=== PATIENT | male | born 1950 | race Caucasian/White ===

== ENCOUNTER 2018-04-05 20:38 | Inpatient (IN) | payer MEDICARE ==
[~2018-04-05] VITALS: Ht 170.2 cm; Wt 93.7 kg
[2018-04-05] MEDS ORDERED: OXYBUTYNIN CHLOR5 MG PO (20:43)
[2018-04-05] MEDS ORDERED: BACLOFEN10 MG PO (20:44)
[2018-04-05] MEDS ORDERED: ULTRAM50 MG PO (20:46)
[2018-04-06] VITALS (31 sets, daily range): BP systolic 90–196; BP diastolic 46–89; Ht 170.2 cm; Wt 93.7 kg
[2018-04-06 00:03] LABS: INR 1.37 (0.85-1.17); PROTIME 16.3 SECONDS (11.6-15.0)
[2018-04-06 00:04] LABS: APTT 37.6 SECONDS (22.8-39.4)
[2018-04-06 06:31] LABS: CALC OSMOLALITY 275 mosm/kg (275-300); CALCIUM 7.2 mg/dL (8.5-10.1); CHLORIDE - SERUM 97 mmol/L (98-107); CREATININE - SERUM 0.9 mg/dL (0.6-1.3); GLUCOSE 178 mg/dL (74-106); SODIUM 134 mmol/L (136-145); UREA NITROGEN 24 mg/dL (7-18); eGFR NON AFRICAN AMERICAN 89 mL/min (90-120)
[2018-04-06 06:43] LABS: POTASSIUM - SERUM 2.7 mmol/L (3.5-5.1)
[2018-04-06 06:46] LABS: BASOPHILS 0.7 % (0-2); EOSINOPHILS 0.1 % (0-7); HEMOGLOBIN 11.4 g/dL (13.5-17.5); IMMATURE GRANULOCYTES 7.3 % (0-5); MCH 30.4 pg (26.0-34.0); MCHC 35.6 g/dL (31.0-37.0); MCV 85.3 fL (80.0-100.0); MEAN PLATELET VOLUME 9.7 fL (7.4-10.4); MONOCYTES 3.6 % (2-11); NEUTROPHILS 85.3 % (40-80); PLATELET COUNT 145 10x3/uL (130-400); RBC 3.75 10x6/uL (4.20-6.10); RDW 14.4 % (11.5-14.5); WBC 15.1 10x3/uL (4.8-10.8)
--- NOTE | 2018-04-06 07:59 | OP ---
PATIENT NAME: GRISELDA LAN MEDICAL RECORD: [id number] :46 LOCATION:[facility] D.2303 ADMISSION DATE:04/05/18 SURGEON: AMA KO MD DATE OF OPERATION: 04/05/2018 SURGEON: Ama Ko MD CO-SURGEON: Castro Guzman MD ANESTHESIA: General. COMPLICATIONS: None. BLOOD LOSS: 1500 cc. WOUND CLASS: Grossly contaminated. PROCEDURE PERFORMED: Excisional debridement of Deb gangrene. Excisional debridement of stage IV right ischial decubitus ulcer, the wound was 50 cm in length, 35 cm in width, and 5 cm in depth. Left subclavian central venous line. Two additional procedures performed, please see Dr. Guzman's operative note for cystoscopy and Smith stent placement, excision of scrotum and creation of subcutaneous pocket for translocation of testicles. OPERATIVE COURSE: After consent was obtained, the patient was taken to the operating room and placed in the supine position on the operating table. General anesthesia was given. The left chest was prepped and draped in typical sterile fashion. The left subclavian vein was cannulated on the first pass. A guidewire was placed. The skin was incised with an 11-blade scalpel. The dilator was passed over the wire in a standard Seldinger fashion. The catheter was then passed over the wire in a standard Seldinger fashion. A Biopatch was placed. It was secured to the skin with a 2-0 nylon suture and sterile dressing. All 3 ports were aspirated and flushed. At this time, the patient was placed into the lithotomy position. The perineum was prepped and draped in typical sterile fashion. The patient had an eschar in the right ischial tuberosity that was 10 cm x 10 cm. The eschar was excised using 10 blade scalpel. The decubitus ulcer was stage IV and went to the ischial tuberosity with complete necrosis of the skin and subcutaneous tissue down to the periosteum of the ischial tuberosity. Again, the CT was examined. The areas of tissue dissection continued in correspondence with the preoperative imaging. Subcutaneous tissue, fascia was excised laterally from the decubitus ulcer to the lateral portion of the right posterior thigh. Subcutaneous tissue planes were again continued to be dissected medially, which came along and abutted to the rectum, penis, and continued down into the right and left hemiscrotum as well as extending up the inguinal canal. All skin was incised with a 10-blade scalpel. All necrotic tissue was excised using combination of electrocautery, sharp scissor dissection as well as scalpel dissection. At this time, Dr. Guzman performed his portion of the procedure. The patient had hypospadias with stricture of the urethra and a Smith was unable to be placed preoperatively. Dr. Guzman performed a cystoscopy with Smith catheter placement to the urethral stricture. Dr. Guzman debrided the right and left hemiscrotum. I assisted Dr. Guzman with the excision of the right and left hemiscrotum as is Dr. Guzman with creation of the subcutaneous tunnels for the placement of the testicles. At this time, I again copiously irrigated and suctioned the wound with peroxide and normal OPERATIVE REPORT [id number] GRISELDA LAN saline irrigation. Achieved hemostasis with electrocautery. The wound was then packed with Dakin's dampened Kerlix gauze. The total wound area was 50 cm x 35 cm x 5 cm. The patient was transferred to the ICU, intubated, in a critical condition. TRANSINT:[id number] Voice Confirmation ID: [id number] DOCUMENT ID: [id number] AMA KO MD at 0759 CC: [id number] DICTATION DATE: 04/06/18 0131 PLASMA SPECIALIST: 04/06/18 0653 ADM IN [place] [address] [place] [address]
--- NOTE | 2018-04-06 08:27 | OP ---
PATIENT NAME: GRISELDA LAN MEDICAL RECORD: [id number] :46 LOCATION:[facility] D.2303 ADMISSION DATE:04/05/18 SURGEON: OSMAN ROSALES MD DATE OF OPERATION: 04/06/2018 CO-SURGEONS: Alphonso Núñez MD (JJ), and Osman Rosales MD GENERAL ANESTHESIA: Al Sarai. 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 PROCEDURES: Cystoscopy, placement of a 16-Colombian Smith catheter over a guidewire. Wide excisional debridement of the perineum, the entire scrotum, and the proximal penile skin en bloc. Placement of both testicles in subcutaneous suprapubic pockets. Dr. Núñez performed the debridement of the region of the ischial spine and the perirectal fossa. FINDINGS: Gas gangrene with necrosis and abscess of the right ischial fossa, extending into the right buttock and tracking up the peritoneum along the entire scrotum. The testicles are viable and they were placed in suprapubic subcutaneous pocket. On cystoscopy, the patient has a coronal level hypospadias. A tight penile urethral stricture was noted. SPECIMENS: Perineum and scrotum, right inguinal skin, perineal and ischial skin, right facial periosteum. BLOOD LOSS: Estimated at 1500 mL. CLINICAL HISTORY: This is a 68-year-old male, who was transferred emergently from [facility]. He is functionally paraplegic as he is quite debilitated. He has issues with decubitus ulcers. About 2 weeks ago, he noted cellulitis in the right buttock area. This has gotten much more florid and now he is septic with acidosis. A CT scan performed in [place] shows gas in the right buttock around the ischial spine. They tracked in to the ischial fossa around the perirectal area and up the peritoneum into the scrotum. The gas is quite prevalent in the right hemiscrotum, but a dull flow is present in the left hemiscrotum. There is also some tracking of the gas in to the right medial thigh. He has been given multiple wide-spectrum antibiotics upon his arrival to the hospital. He is getting wide excisional debridement of all necrotic tissue. Dr. Núñez had already placed the patient in stirru, given him general anesthetic and started debridement of the tissues around the right ischial spine and the ischial fossa. He will dictate this part of the surgery separately. I was called to come to the OR as a Smith catheter could not be placed and also it was evident that the necrosis was extending into the scrotum. When I entered the first order of business was to get a catheter for fluid management. The patient has a coronal level hypospadias. I used urethral sounds to dilate the opening of the hypospadias to 24 Colombian. A 21-Colombian cystoscope with 30-degree lens was used for visualization. Normal saline was used for irrigation. The scope went into the mid penile urethra and then encountered a tight urethral stricture. I placed a Sensor wire through the lumen of the stricture and into the bladder. The scope was then removed, leaving the Sensor wire in place. Over the Sensor wire, we placed a 16-Colombian Godley Smith catheter. Once the catheter was fully in the bladder, the balloon OPERATIVE REPORT [id number] GRISELDA LAN was inflated with 15 mL of sterile water. The Sensor wire was then completely removed. The Smith catheter was put to bag drainage. I then extended the perineal incision cranially. We encountered necrotic tissue and pockets of pus. As I continued to dissect the right hemiscrotum, it was evident that the necrotic skin extended into the left hemiscrotum. We then extended the perineal incision all the way to the base of the left hemiscrotum. We continued to dissect away the scrotal skin and eventually we encountered the tunica vaginalis with the testicle attached. On the left side, we severed the gubernaculum and allowed the testicle within the tunica vaginalis to hang free. The testicle appears completely viable and pink. On the right side, a similar procedure was done, but the right side was encompassed and lot more necrotic tissue and abscess with pus. However, it was apparent that the necrotic tissue was merely necrosis of the tunica vaginalis. We stripped off the necrotic tunica vaginalis and the underlying testicle itself with the tunica albuginea was intact on the right side. Thus, the 2 testicles are viable. We continued the dissection en bloc. We went through Camper's and Giovani's fascia until we encountered the Miguel's fascia of the penis. The Smith catheter could be palpated in the urethra. We continued to dissect along the surface of the penis. The penis itself was completely viable. In this way, we finally had to meet the left lateral scrotal base incision to the right lateral scrotal base incision and this came across the base of the penis. Once the incision was fully made and the tissues dissected, the entire scrotum was removed en bloc. Some of the right medial thigh also had to be resected as the necrosis continued from the scrotum on to the right medial thigh. We then made suprapubic pocket instead of thigh pockets. The right medial thigh especially is going to be of questionable viability in the future. These are made bluntly using finger dissection. We then passed a 2-0 Prolene suture on a Tony needle entering from the skin of the intended testicular pocket on to a malleable retractor that had been placed into the pocket. The tip of the needle was then captured with a hemostat. The needle was placed through the inferior pole of the testicle and then the needle was passed back through the skin of the suprapubic region at the level of the intended pocket. We then gently pulled on both ends of the suture, which pulled the inferior pole of the testicle into the pocket. A 14-Colombian catheter had been cut into 1 cm segments to act as a rubber shod for the suture. This was placed on one of the suture strands and then the suture was tied to the skin loosely. We did not want to create any skin necrosis, we only wanted to anchor the testicle into its pocket. This was done on both sides. At this point, the necrotic periosteum over the ischium was also stripped away. The wound was liberally irrigated with normal saline and peroxide. Dakin solution was used for a Kerlix for packing. The patient will eventually be sent back to the intensive care unit. TRANSINT:[id number] Voice Confirmation ID: [id number] DOCUMENT ID: [id number] OSMAN ROSALES MD at 0827 CC: [id number] DICTATION DATE: 04/06/18 011 HUMAN RESOURCES EXECUTIVE: 04/06/18 0447 ADM IN [place] [address] [place] [address]
[2018-04-06 09:48] LABS: % SATURATION 36 % (15-55); IRON 36 ug/dl (35-150); TOTAL IRON BIND CAPACITY 98 ug/dl (260-445); UNSAT IRON BIND CAPACITY 62 ug/dl (150-375)
[2018-04-07] VITALS (34 sets, daily range): BP systolic 89–148; BP diastolic 43–88
[2018-04-07 05:10] LABS: BASOPHILS 0.1 % (0-2); EOSINOPHILS 0.3 % (0-7); IMMATURE GRANULOCYTES 5.3 % (0-5); LYMPHOCYTES 6.9 % (15-50); MCH 29.8 pg (26.0-34.0); MCHC 34.3 g/dL (31.0-37.0); MEAN PLATELET VOLUME 9.5 fL (7.4-10.4); MONOCYTES 3.3 % (2-11); NEUTROPHILS 84.1 % (40-80); RDW 15.5 % (11.5-14.5)
[2018-04-07 05:18] LABS: HEMATOCRIT 24.8 % (42.0-54.0); HEMOGLOBIN 8.5 g/dL (13.5-17.5); PLATELET COUNT 104 10x3/uL (130-400); RBC 2.85 10x6/uL (4.20-6.10); WBC 7.3 10x3/uL (4.8-10.8)
[2018-04-07 05:24] LABS: APTT 35.8 SECONDS (22.8-39.4); INR 1.27 (0.85-1.17); PROTIME 15.4 SECONDS (11.6-15.0)
[2018-04-07 05:38] LABS: ANION GAP 13.9 mmol/L (8-16); BILIRUBIN - DIRECT 1.19 mg/dL (0.00-0.30); BILIRUBIN - INDIRECT 0.24 mg/dL (0.00-1.00); BILIRUBIN - TOTAL 1.43 mg/dL (0.2-1.3); CARBON DIOXIDE 23.7 mmol/L (21.0-32.0); CREATININE - SERUM 1.1 mg/dL (0.6-1.3); MAGNESIUM - SERUM 1.5 mg/dL (1.8-2.4); PHOSPHOROUS 1.6 mg/dL (2.5-4.9); POTASSIUM - SERUM 3.6 mmol/L (3.5-5.1); PROTEIN - SERUM 4.2 g/dL (6.4-8.2)
[2018-04-07 05:39] LABS: CALCIUM 6.7 mg/dL (8.5-10.1)
[2018-04-08] VITALS (18 sets, daily range): BP systolic 93–157; BP diastolic 54–79
[2018-04-08 06:22] LABS: ALKALINE PHOSPHATASE 130 U/L (46-116); ALT (SGPT) 24 U/L (10-68); BILIRUBIN - DIRECT 1.11 mg/dL (0.00-0.30); BILIRUBIN - INDIRECT 0.37 mg/dL (0.00-1.00); BILIRUBIN - TOTAL 1.48 mg/dL (0.2-1.3); CARBON DIOXIDE 23.1 mmol/L (21.0-32.0); CHLORIDE - SERUM 106 mmol/L (98-107); CREATININE - SERUM 0.9 mg/dL (0.6-1.3); GLUCOSE 137 mg/dL (74-106); POTASSIUM - SERUM 3.8 mmol/L (3.5-5.1); PROTEIN - SERUM 4.9 g/dL (6.4-8.2); SODIUM 139 mmol/L (136-145); VANCOMYCIN - RANDOM 21.9 ug/mL (10.0-20.0); eGFR NON AFRICAN AMERICAN 89 mL/min (90-120)
[2018-04-08 06:26] LABS: HEMATOCRIT 31.2 % (42.0-54.0); HEMOGLOBIN 10.6 g/dL (13.5-17.5); MCH 29.5 pg (26.0-34.0); MCV 86.9 fL (80.0-100.0); MEAN PLATELET VOLUME 9.5 fL (7.4-10.4); PLATELET COUNT 116 10x3/uL (130-400); RBC 3.59 10x6/uL (4.20-6.10); RDW 17.5 % (11.5-14.5); WBC 10.4 10x3/uL (4.8-10.8)
[2018-04-08 06:33] LABS: ALBUMIN 1.5 g/dL (3.4-5.0); CALC OSMOLALITY 280 mosm/kg (275-300); MAGNESIUM - SERUM 1.9 mg/dL (1.8-2.4); UREA NITROGEN 15 mg/dL (7-18)
[2018-04-08 06:52] LABS: EOSINOPHILS 1 % (0-7); LYMPHOCYTES 6 % (15-50); MONOCYTES 1 % (2-11); NEUTROPHILS 84 % (40-80); PLATELET ESTIMATE DECREASED
[2018-04-09] VITALS (23 sets, daily range): BP systolic 107–164; BP diastolic 58–96
[2018-04-09 05:46] LABS: BASOPHILS 1.4 % (0-2); EOSINOPHILS 0.6 % (0-7); HEMATOCRIT 30.1 % (42.0-54.0); IMMATURE GRANULOCYTES 10.9 % (0-5); MCH 29.1 pg (26.0-34.0); MCHC 33.2 g/dL (31.0-37.0); MCV 87.5 fL (80.0-100.0); MEAN PLATELET VOLUME 9.3 fL (7.4-10.4); MONOCYTES 3.2 % (2-11); NEUTROPHILS 73.9 % (40-80); PLATELET COUNT 111 10x3/uL (130-400); RBC 3.44 10x6/uL (4.20-6.10); RDW 17.4 % (11.5-14.5); WBC 8.1 10x3/uL (4.8-10.8)
[2018-04-09 05:56] LABS: INR 1.3 (0.85-1.17); PROTIME 15.6 SECONDS (11.6-15.0)
[2018-04-09 05:57] LABS: APTT 38.1 SECONDS (22.8-39.4)
[2018-04-09 06:00] LABS: CARBON DIOXIDE 21.6 mmol/L (21.0-32.0); CHLORIDE - SERUM 104 mmol/L (98-107); CREATININE - SERUM 0.9 mg/dL (0.6-1.3); GLUCOSE 132 mg/dL (74-106); MAGNESIUM - SERUM 1.7 mg/dL (1.8-2.4); PHOSPHOROUS 1.9 mg/dL (2.5-4.9); POTASSIUM - SERUM 3.8 mmol/L (3.5-5.1); SODIUM 137 mmol/L (136-145); eGFR NON AFRICAN AMERICAN 89 mL/min (90-120)
[2018-04-09 06:01] LABS: CALC OSMOLALITY 274 mosm/kg (275-300); UREA NITROGEN 10 mg/dL (7-18)
[2018-04-09 06:02] LABS: ALBUMIN 1.9 g/dL (3.4-5.0); CALCIUM 6.9 mg/dL (8.5-10.1)
[2018-04-10] VITALS (17 sets, daily range): BP systolic 122–166; BP diastolic 50–99
--- NOTE | 2018-04-10 05:22 | OP ---
PATIENT NAME: GRISELDA LAN MEDICAL RECORD: [id number] :46 LOCATION:[facility] D.2303 ADMISSION DATE:04/05/18 SURGEON: AMA KO MD DATE OF OPERATION: 04/07/2018 SURGEON: Ama Ko MD PREOPERATIVE DIAGNOSIS: Deb gangrene. POSTOPERATIVE DIAGNOSIS: Deb gangrene. PROCEDURE PERFORMED: Excisional debridement of Deb's gangrene. The wound area is 50 cm x 35 cm x 5 cm. Sharp debridement was performed throughout the wound bed to debride all additional necrotic tissue. The wound was then copiously irrigated with hydrogen peroxide and saline. OPERATIVE COURSE: Hemostasis was obtained with electrocautery. The wound was then packed with Kerlix gauze soaked in quarter strength Dakin solution and covered in dry gauze dressings. At the end of the case, all needle and instrument counts were correct. No complications occurred. The patient was transferred to the ICU in stable condition. TRANSINT:[id number] Voice Confirmation ID: [id number] DOCUMENT ID: [id number] AMA KO MD at 0522 CC: [id number] DICTATION DATE: 04/07/18 1229 PLASTICS BENCH MECHANIC: 04/07/182109 ADM IN [place] [address] [place] [id number]
[2018-04-10 05:34] LABS: BASOPHILS 0.7 % (0-2); EOSINOPHILS 0.6 % (0-7); HEMATOCRIT 30.3 % (42.0-54.0); HEMOGLOBIN 10.1 g/dL (13.5-17.5); IMMATURE GRANULOCYTES 12.5 % (0-5); LYMPHOCYTES 9.2 % (15-50); MCH 29.4 pg (26.0-34.0); MCHC 33.3 g/dL (31.0-37.0); MCV 88.1 fL (80.0-100.0); MEAN PLATELET VOLUME 9.3 fL (7.4-10.4); MONOCYTES 2.3 % (2-11); NEUTROPHILS 74.7 % (40-80); PLATELET COUNT 109 10x3/uL (130-400); RBC 3.44 10x6/uL (4.20-6.10); RDW 17.2 % (11.5-14.5); WBC 8.4 10x3/uL (4.8-10.8)
[2018-04-10 05:47] LABS: CALC OSMOLALITY 273 mosm/kg (275-300); CALCIUM 7.2 mg/dL (8.5-10.1); CARBON DIOXIDE 21.3 mmol/L (21.0-32.0); CHLORIDE - SERUM 104 mmol/L (98-107); CREATININE - SERUM 0.8 mg/dL (0.6-1.3); GLUCOSE 139 mg/dL (74-106); POTASSIUM - SERUM 3.7 mmol/L (3.5-5.1); SODIUM 137 mmol/L (136-145); UREA NITROGEN 8 mg/dL (7-18); eGFR NON AFRICAN AMERICAN > 90 mL/min (90-120)
[2018-04-11] VITALS: BP 148/45
[2018-04-11 05:00] VITALS: BP 156/77
[2018-04-11 06:23] LABS: HEMATOCRIT 34.7 % (42.0-54.0); HEMOGLOBIN 11.5 g/dL (13.5-17.5); MCH 29.3 pg (26.0-34.0); MCHC 33.1 g/dL (31.0-37.0); MCV 88.5 fL (80.0-100.0); PLATELET COUNT 97 10x3/uL (130-400); RBC 3.92 10x6/uL (4.20-6.10); RDW 16.9 % (11.5-14.5); WBC 9.3 10x3/uL (4.8-10.8)
[2018-04-11 06:32] LABS: ALKALINE PHOSPHATASE 157 U/L (46-116); ALT (SGPT) 10 U/L (10-68); BILIRUBIN - TOTAL 1.46 mg/dL (0.2-1.3); CALC OSMOLALITY 266 mosm/kg (275-300); CALCIUM 7.6 mg/dL (8.5-10.1); CARBON DIOXIDE 22.9 mmol/L (21.0-32.0); CHLORIDE - SERUM 101 mmol/L (98-107); CREATININE - SERUM 0.8 mg/dL (0.6-1.3); GLUCOSE 108 mg/dL (74-106); PROTEIN - SERUM 5.9 g/dL (6.4-8.2); SODIUM 134 mmol/L (136-145); UREA NITROGEN 7 mg/dL (7-18); eGFR NON AFRICAN AMERICAN > 90 mL/min (90-120)
[2018-04-11 06:35] LABS: ALBUMIN 2.8 g/dL (3.4-5.0)
[2018-04-11 08:05] LABS: EOSINOPHILS 1 % (0-7); LYMPHOCYTES 10 % (15-50); MONOCYTES 4 % (2-11); NEUTROPHILS 74 % (40-80); PLATELET ESTIMATE DECREASED
[2018-04-11 08:27] VITALS: BP 152/74
--- NOTE | 2018-04-11 09:14 | MORECARE ---
CASE MANAGEMENT DISCHARGE SUMMARY PATIENT: GRISELDA LAN UNIT: [id number] ADM DATE: 04/05/18 AGE: 68 : 48 SEX: M ROOM/BED: D.2229 AUTHOR: TERRY DOWLING PHYSICIAN: REFERRING PHYSICIAN: NOHEMI REID MD DATE OF SERVICE: 04/11/18 Discharge Plan Patient Name: GRISELDA LAN [facility] [facility] 1950 Planned Disposition: Care Home Acute Care Facility Anticipated Discharge Date: Discharge Date: Expected LOS: Initial Reviewer: [email or web address] Initial Review Date: 04/11/2018 Generated: 04/11/18 10:14 am DCPIA - Discharge Planning Initial Assessment Updated by [email or web address]: Ambar Brown on 04/11/18 9:13 am * Is the patient Alert and Oriented? Yes * How many steps to enter\exit or inside your home? 0/0 * PCP Dr. Alphonso Dougherty * Pharmacy [facility] in [place] * Preadmission Environment Home Alone * ADLs Partial Dependent * Partial ADLs (Assistance needed) Ambulation * Equipment Wheelchair * List name and contact numbers for known caregivers / representatives who currently or will assist patient after discharge: Julia sidhu - [phone] * Verbal permission to speak to the caregivers and representatives has been obtained from the patient. Yes * Community resources currently utilized None * Additional services required to return to the preadmission environment? Yes * Can the patient safely return to the preadmission environment? No * Has this patient been hospitalized within the prior 30 days at any hospital? No External Providers External Provider: Rishi Acevedo [facility] Next Contact Date: Service Request Date: Service Type: Resolution: Reviewer: Comments: Patient Name: GRISELDA LAN Page [phone] at 0914 All edits/amendments must be made on the electronic document DICTATION DATE: 04/11/18912 SECURITY SUPERVISOR: LIZZY 04/11/18912 RPT#: [id number] DC DATE: STATUS: ADM IN [facility] [address] [place] [address] END OF REPORT
--- NOTE | 2018-04-11 09:27 | MORECARE ---
CASE MANAGEMENT DISCHARGE SUMMARY PATIENT: GRISELDA LAN UNIT: [id number] ADM DATE: 04/05/18 AGE: 68 : 48 SEX: M ROOM/BED: D.2229 AUTHOR: JOSEYDOC PHYSICIAN: REFERRING PHYSICIAN: NOHEMI REID MD DATE OF SERVICE: 04/11/18 Discharge Plan Patient Name: GRISELDA LAN Facility: [facility]:[place] : 1950 Planned Disposition: Plans Examiner Acute Care Facility Anticipated Discharge Date: Discharge Date: Expected LOS: Initial Reviewer: [email or web address] Initial Review Date: 04/11/2018 Generated: 04/11/18 10:27 am Comments DCP- Discharge Planning Updated by [email or web address]: Ambar Brown on 04/11/18 8:[address] Patient Name: GRISELDA LAN Admission Status: ER Accout number: [id number] Admission Date: 04-05-2018 : 1950 Admission Diagnosis:FARAZ GANGRENE Attending: NOHEMI REID Current LOS: 6 Anticipated DC Date: Planned Disposition: Plans Examiner Acute Care Facility Primary Insurance: MEDICARE A & B Discharge Planning Comments: CM met with patient to discuss discharge planning, he is alone in the room. States he lives in a one level home, no steps or ramp to the home. States he is in a wheelchair. States he self propels his wheelchair. States his son, Julia, is active in his care. He does not have any community resources assisting in the home. States he is independent and has a van he drives. States he self propels in his wheelchair. I discussed LTACH and SNF with him and he would like a referral to LTACH in [place]. I called Oxana with [facility] in [place] and clinical faxed. She states they are full now, but expect to have 4 discharges this week. CM will continue to follow and assist with discharge planning/needs. Anchorer: Ambar Brown DCPIA - Discharge Planning Initial Assessment Updated by [email or web address]: Ambar Brown on 04/11/18 9:13 am * Is the patient Alert and Oriented? Yes * How many steps to enter\exit or inside your home? 0/0 * PCP Dr. Alphonso Dougherty * Pharmacy [facility] in [place] * Preadmission Environment Home Alone * ADLs Partial Dependent * Partial ADLs (Assistance needed) Ambulation * Equipment Wheelchair * List name and contact numbers for known caregivers / representatives who currently or will assist patient after discharge: Julia sidhu - [phone] * Verbal permission to speak to the caregivers and representatives has been obtained from the patient. Yes * Community resources currently utilized None * Additional services required to return to the preadmission environment? Yes * Can the patient safely return to the preadmission environment? No * Has this patient been hospitalized within the prior 30 days at any hospital? No Last DP export: 04/11/18 8:14 a Patient Name: GRISELDA LAN Page [phone] at 0927 All edits/amendments must be made on the electronic document DICTATION DATE: 04/11/18926 CERTIFIED PHYSICIAN'S ASSISTANT: LIZZY 04/11/18926 RPT#: [id number] DC DATE: STATUS: ADM IN [facility] [address] [place] [address] END OF REPORT
[2018-04-11 12:04] VITALS: BP 160/75
[2018-04-11 15:07] VITALS: BP 136/76
[2018-04-11 20:00] VITALS: BP 153/63
[2018-04-12 04:00] VITALS: BP 151/59
[2018-04-12 08:00] VITALS: BP 130/80
[2018-04-12 10:28] LABS: HEMATOCRIT 32.7 % (42.0-54.0); HEMOGLOBIN 10.9 g/dL (13.5-17.5); MCH 29.3 pg (26.0-34.0); MCHC 33.3 g/dL (31.0-37.0); MCV 87.9 fL (80.0-100.0); MEAN PLATELET VOLUME 9.7 fL (7.4-10.4); PLATELET COUNT 83 10x3/uL (130-400); RBC 3.72 10x6/uL (4.20-6.10); RDW 16.6 % (11.5-14.5); WBC 7.8 10x3/uL (4.8-10.8)
[2018-04-12 10:43] LABS: ALBUMIN 2.4 g/dL (3.4-5.0); ALKALINE PHOSPHATASE 185 U/L (46-116); ALT (SGPT) 10 U/L (10-68); BILIRUBIN - TOTAL 1.31 mg/dL (0.2-1.3); CALC OSMOLALITY 263 mosm/kg (275-300); CALCIUM 7.4 mg/dL (8.5-10.1); CARBON DIOXIDE 24.4 mmol/L (21.0-32.0); CHLORIDE - SERUM 100 mmol/L (98-107); CREATININE - SERUM 0.7 mg/dL (0.6-1.3); GLUCOSE 120 mg/dL (74-106); POTASSIUM - SERUM 4.2 mmol/L (3.5-5.1); PROTEIN - SERUM 5.6 g/dL (6.4-8.2); SODIUM 132 mmol/L (136-145); UREA NITROGEN 8 mg/dL (7-18); eGFR NON AFRICAN AMERICAN > 90 mL/min (90-120)
[2018-04-12 10:51] LABS: EOSINOPHILS 2 % (0-7); LYMPHOCYTES 14 % (15-50); MONOCYTES 3 % (2-11); NEUTROPHILS 81 % (40-80); PLATELET ESTIMATE DECREASED
[2018-04-12 10:52] LABS: PLATELET MORPHOLOGY NORMAL PLT MORPH
[2018-04-12 12:00] VITALS: BP 144/60
[2018-04-12 17:43] VITALS: BP 130/80
[2018-04-12 17:53] VITALS: BP 116/71
[2018-04-12 20:00] VITALS: BP 131/71
[2018-04-13] VITALS: BP 128/64
[2018-04-13 04:00] VITALS: BP 146/70
[2018-04-13 08:45] VITALS: BP 154/87
[2018-04-13 10:15] LABS: BASOPHILS 0.1 % (0-2); EOSINOPHILS 1.2 % (0-7); HEMATOCRIT 31.4 % (42.0-54.0); HEMOGLOBIN 10.6 g/dL (13.5-17.5); IMMATURE GRANULOCYTES 2.2 % (0-5); LYMPHOCYTES 8.1 % (15-50); MCH 29.4 pg (26.0-34.0); MCHC 33.8 g/dL (31.0-37.0); MCV 87.2 fL (80.0-100.0); MEAN PLATELET VOLUME 9.9 fL (7.4-10.4); MONOCYTES 3.2 % (2-11); NEUTROPHILS 85.2 % (40-80); PLATELET COUNT 78 10x3/uL (130-400); RDW 16.5 % (11.5-14.5)
[2018-04-13 10:27] LABS: ALBUMIN 2.3 g/dL (3.4-5.0); ALKALINE PHOSPHATASE 234 U/L (46-116); ALT (SGPT) 10 U/L (10-68); CALC OSMOLALITY 266 mosm/kg (275-300); CALCIUM 7.4 mg/dL (8.5-10.1); CARBON DIOXIDE 24.7 mmol/L (21.0-32.0); CHLORIDE - SERUM 99 mmol/L (98-107); CREATININE - SERUM 0.8 mg/dL (0.6-1.3); GLUCOSE 136 mg/dL (74-106); POTASSIUM - SERUM 3.8 mmol/L (3.5-5.1); PROTEIN - SERUM 5.8 g/dL (6.4-8.2); SODIUM 133 mmol/L (136-145); UREA NITROGEN 9 mg/dL (7-18); eGFR NON AFRICAN AMERICAN > 90 mL/min (90-120)
[2018-04-13 17:11] VITALS: BP 136/70
[2018-04-13 20:00] VITALS: BP 148/69
[2018-04-14] VITALS: BP 126/62
[2018-04-14 04:00] VITALS: BP 137/73
[2018-04-14 05:43] LABS: HEMATOCRIT 28.7 % (42.0-54.0); HEMOGLOBIN 9.9 g/dL (13.5-17.5); MCH 30.7 pg (26.0-34.0); MCHC 34.5 g/dL (31.0-37.0); MCV 88.9 fL (80.0-100.0); MEAN PLATELET VOLUME 9.5 fL (7.4-10.4); PLATELET COUNT 65 10x3/uL (130-400); RBC 3.23 10x6/uL (4.20-6.10); RDW 16.5 % (11.5-14.5); WBC 4.3 10x3/uL (4.8-10.8)
[2018-04-14 05:50] LABS: ALBUMIN 2.1 g/dL (3.4-5.0); ALKALINE PHOSPHATASE 180 U/L (46-116); BILIRUBIN - TOTAL 1.12 mg/dL (0.2-1.3); CALC OSMOLALITY 263 mosm/kg (275-300); CALCIUM 7.4 mg/dL (8.5-10.1); CARBON DIOXIDE 26.9 mmol/L (21.0-32.0); CHLORIDE - SERUM 100 mmol/L (98-107); CREATININE - SERUM 0.7 mg/dL (0.6-1.3); GLUCOSE 99 mg/dL (74-106); POTASSIUM - SERUM 3.5 mmol/L (3.5-5.1); PROTEIN - SERUM 5.3 g/dL (6.4-8.2); SODIUM 133 mmol/L (136-145); UREA NITROGEN 8 mg/dL (7-18); eGFR NON AFRICAN AMERICAN > 90 mL/min (90-120)
[2018-04-14 05:53] LABS: ALT (SGPT) 6 U/L (10-68)
[2018-04-14 07:34] LABS: LYMPHOCYTES 16 % (15-50); MONOCYTES 4 % (2-11); NEUTROPHILS 72 % (40-80)
[2018-04-14 07:35] LABS: PLATELET ESTIMATE DECREASED
[2018-04-14 08:49] VITALS: BP 137/77
--- NOTE | 2018-04-14 08:58 | MORECARE ---
CASE MANAGEMENT DISCHARGE SUMMARY PATIENT: GRISELDA CORTES UNIT: [id number] ADM DATE: 04/05/18 AGE: 68 : 48 SEX: M ROOM/BED: D.2229 AUTHOR: TERRY DOWLING PHYSICIAN: REFERRING PHYSICIAN: NOHEMI REID MD DATE OF SERVICE: 04/14/18 Discharge Plan Patient Name: GRISELDA CORTES Facility: [facility]:[place] : 1950 Planned Disposition: Bilingual Customer Service Acute Care Facility Anticipated Discharge Date: Discharge Date: Expected LOS: Initial Reviewer: [email or web address] Initial Review Date: 04/11/2018 Generated: 04/14/18 9:58 am Comments DCP- Discharge Planning Updated by [email or web address]: Ambar Brown on 04/14/18 7:[address] Spoke again with patient and explained LTACH. He states he will not go to [place], but agrees to LTACH ([facility]) at [facility] in [place]. He asks me to call his son, Mitch at [phone]. I attempted that number with no answer. I called him at [phone] and spoke with his son and he agrees to [facility] in [place] at [facility]. I called Oxana Zuluaga at [facility] and left a message that patient is ready to come today. CM will continue to follow and assist with discharge planning/needs. DCP- Discharge Planning Updated by [email or web address]: Ambar Brown on 04/11/18 8:[address] Patient Name: GRISELDA LAN Admission Status: ER Accout number: [id number] Admission Date: 04-05-2018 : 1950 Admission Diagnosis:FARAZ GANGRENE Attending: NOHEMI REID Current LOS: 6 Anticipated DC Date: Planned Disposition: Senior Care Acute Care Facility Primary Insurance: MEDICARE A & B Discharge Planning Comments: CM met with patient to discuss discharge planning, he is alone in the room. States he lives in a one level home, no steps or ramp to the home. States he is in a wheelchair. States he self propels his wheelchair. States his son, Julia, is active in his care. He does not have any community resources assisting in the home. States he is independent and has a van he drives. States he self propels in his wheelchair. I discussed LTACH and SNF with him and he would like a referral to LTACH in [place]. I called Oxana with [facility] in [place] and clinical faxed. She states they are full now, but expect to have 4 discharges this week. CM will continue to follow and assist with discharge planning/needs. Cnc Router Operator: Ambar Brown DCPIA - Discharge Planning Initial Assessment Updated by [email or web address]: Ambar Brown on 04/11/18 9:13 am * Is the patient Alert and Oriented? Yes * How many steps to enter\exit or inside your home? 0/0 * PCP Dr. Alphonso Dougherty * Pharmacy [facility] in [place] * Preadmission Environment Home Alone * ADLs Partial Dependent * Partial ADLs (Assistance needed) Ambulation * Equipment Wheelchair * List name and contact numbers for known caregivers / representatives who currently or will assist patient after discharge: Julia - son - [phone] * Verbal permission to speak to the caregivers and representatives has been obtained from the patient. Yes * Community resources currently utilized None * Additional services required to return to the preadmission environment? Yes * Can the patient safely return to the preadmission environment? No * Has this patient been hospitalized within the prior 30 days at any hospital? No Last DP export: 04/11/18 8:27 a Patient Name: GRISELDA CORTES Page 39421 at 0858 All edits/amendments must be made on the electronic document DICTATION DATE: 04/14/18856 AUTOMATIC BUFFER: LIZZY 04/14/18856 RPT#: [id number] DC DATE: STATUS: ADM IN [facility] [address] [place] [address] END OF REPORT
--- NOTE | 2018-04-14 09:13 | MORECARE ---
CASE MANAGEMENT DISCHARGE SUMMARY PATIENT: GRISELDA CORTES UNIT: [id number] ADM DATE: 04/05/18 AGE: 68 : 48 SEX: M ROOM/BED: D.2229 AUTHOR: JOSEYDOC PHYSICIAN: REFERRING PHYSICIAN: NOHEMI REID MD DATE OF SERVICE: 04/14/18 Discharge Plan Patient Name: GRISELDA OCRTES Facility: [facility]:[place] : 1950 Planned Disposition: Bundle Breaker Acute Care Facility Anticipated Discharge Date: Discharge Date: Expected LOS: Initial Reviewer: [email or web address] Initial Review Date: 04/11/2018 Generated: 04/14/18 10:13 am Comments DCP- Discharge Planning Updated by [email or web address]: Ambar Brown on 04/14/18 8:[address] UPDATED CLINICAL SENT TO [facility] IN [place]. DCP- Discharge Planning Updated by [email or web address]: Ambar Kevin on 04/14/18 7:[address] Spoke again with patient and explained LTACH. He states he will not go to [place], but agrees to LTACH ([facility] [place]) at [facility] in [place]. He asks me to call his son, Mitch at [phone]. I attempted that number with no answer. I called him at [phone] and spoke with his son and he agrees to [facility] in [place] at [facility]. I called Oxana Zuluaga at [facility] and left a message that patient is ready to come today. CM will continue to follow and assist with discharge planning/needs. DCP- Discharge Planning Updated by [email or web address]: Ambar Kevin on 04/11/18 8:[address] Patient Name: GRISELDA LAN Admission Status: ER Accout number: [id number] Admission Date: 04-05-2018 : 1950 Admission Diagnosis:FARAZ GANGRENE Attending: NOHEMI REID Current LOS: 6 Anticipated DC Date: Planned Disposition: Bundle Breaker Acute Care Facility Primary Insurance: MEDICARE A & B Discharge Planning Comments: CM met with patient to discuss discharge planning, he is alone in the room. States he lives in a one level home, no steps or ramp to the home. States he is in a wheelchair. States he self propels his wheelchair. States his son, Julia, is active in his care. He does not have any community resources assisting in the home. States he is independent and has a van he drives. States he self propels in his wheelchair. I discussed LTACH and SNF with him and he would like a referral to LTACH in [place]. I called Oxana with [facility] in [place] and clinical faxed. She states they are full now, but expect to have 4 discharges this week. CM will continue to follow and assist with discharge planning/needs. Repairer And Checker: Ambar Brown INPIA - Discharge Planning Initial Assessment Updated by [email or web address]: Ambar Brown on 04/11/18 9:13 am * Is the patient Alert and Oriented? Yes * How many steps to enter\exit or inside your home? 0/0 * PCP Dr. Alphonso Dougherty * Pharmacy [facility] in [place] * Preadmission Environment Home Alone * ADLs Partial Dependent * Partial ADLs (Assistance needed) Ambulation * Equipment Wheelchair * List name and contact numbers for known caregivers / representatives who currently or will assist patient after discharge: Julia - son - [phone] * Verbal permission to speak to the caregivers and representatives has been obtained from the patient. Yes * Community resources currently utilized None * Additional services required to return to the preadmission environment? Yes * Can the patient safely return to the preadmission environment? No * Has this patient been hospitalized within the prior 30 days at any hospital? No Last DP export: 04/14/18 7:58 a Patient Name: GRISELDA CORTES Page [id number] at 0913 All edits/amendments must be made on the electronic document DICTATION DATE: 04/14/18912 CUPBOARD BUILDER: LIZZY 04/14/18912 RPT#: [id number] DC DATE: STATUS: ADM IN [facility] [address] [place] [place] [address] END OF REPORT
--- NOTE | 2018-04-14 12:03 | MORECARE ---
CASE MANAGEMENT DISCHARGE SUMMARY PATIENT: GRISELDA CORTES UNIT: [id number] ADM DATE: 04/05/18 AGE: 68 : 48 SEX: M ROOM/BED: D.2229 AUTHOR: JOSEY,DOC PHYSICIAN: REFERRING PHYSICIAN: NOHEMI REID MD DATE OF SERVICE: 04/14/18 Discharge Plan Patient Name: GRISELDA CORTES Facility: [facility]:[place] : 1950 Planned Disposition: Sap Bi Architect Acute Care Facility Anticipated Discharge Date: Discharge Date: Expected LOS: Initial Reviewer: [email or web address] Initial Review Date: 04/11/2018 Generated: 04/14/18 1:02 pm Comments DCP- Discharge Planning Updated by [email or web address]: Ambar Brown on 04/14/18 11:[address] Oxana states that they are holding admissions at [facility] until Tuesday. I informed the patient and he is not willing to go to another facility at this time. He would like [facility] on Tuesday. CM will continue to follow and assist with discharge planning/needs. DCP- Discharge Planning Updated by [email or web address]: Ambar Brown on 04/14/18 8:[address] UPDATED CLINICAL SENT TO [facility] IN [place]. DCP- Discharge Planning Updated by [email or web address]: Ambar Kevin on 04/14/18 7:[address] Spoke again with patient and explained LTACH. He states he will not go to [place], but agrees to LTACH ([facility]) at [facility] in [place]. He asks me to call his son, Mitch at [phone]. I attempted that number with no answer. I called him at [phone] and spoke with his son and he agrees to [facility] in [place] at [facility]. I called Oxana Zuluaag at [facility] and left a message that patient is ready to come today. CM will continue to follow and assist with discharge planning/needs. DCP- Discharge Planning Updated by [id number]: Ambar Kevin on 04/11/18 8:[address] Patient Name: GRISELDA LAN Admission Status: ER Accout number: [id number] Admission Date: 04-05-2018 : 1950 Admission Diagnosis:FARAZ GANGRENE Attending: NOHEMI REID Current LOS: 6 Anticipated DC Date: Planned Disposition: Long-Term Acute Care Facility Primary Insurance: MEDICARE A & B Discharge Planning Comments: CM met with patient to discuss discharge planning, he is alone in the room. States he lives in a one level home, no steps or ramp to the home. States he is in a wheelchair. States he self propels his wheelchair. States his son, Julia, is active in his care. He does not have any community resources assisting in the home. States he is independent and has a van he drives. States he self propels in his wheelchair. I discussed LTACH and SNF with him and he would like a referral to LTACH in [place]. I called Oxana with [facility] in [place] and clinical faxed. She states they are full now, but expect to have 4 discharges this week. CM will continue to follow and assist with discharge planning/needs. Family Coach: Ambar Brown [facility] - Discharge Planning Initial Assessment Updated by [email or web address]: Ambar Brown on 04/11/18 9:13 am * Is the patient Alert and Oriented? Yes * How many steps to enter\exit or inside your home? 0/0 * PCP Dr. Alphonso Dougherty * Pharmacy [facility] in [place] * Preadmission Environment Home Alone * ADLs Partial Dependent * Partial ADLs (Assistance needed) Ambulation * Equipment Wheelchair * List name and contact numbers for known caregivers / representatives who currently or will assist patient after discharge: Julia sidhu - [phone] * Verbal permission to speak to the caregivers and representatives has been obtained from the patient. Yes * Community resources currently utilized None * Additional services required to return to the preadmission environment? Yes * Can the patient safely return to the preadmission environment? No * Has this patient been hospitalized within the prior 30 days at any hospital? No Last DP export: 04/14/18 8:13 a Patient Name: GRISELDA CORTES Page [id number] at 1203 All edits/amendments must be made on the electronic document DICTATION DATE: 04/14/181201 SHANKER OUT: LIZZY 04/14/181201 RPT#: [id number] DC DATE: STATUS: ADM IN [facility] [address] [place] [address] END OF REPORT
[2018-04-14 12:35] VITALS: BP 134/73
[2018-04-14 16:39] VITALS: BP 152/80
[2018-04-15] VITALS: BP 164/81
[2018-04-15 04:00] VITALS: BP 158/75
[2018-04-15 06:48] LABS: BASOPHILS 0 % (0-2); EOSINOPHILS 0.8 % (0-7); HEMATOCRIT 29.6 % (42.0-54.0); HEMOGLOBIN 9.8 g/dL (13.5-17.5); IMMATURE GRANULOCYTES 0.6 % (0-5); MCH 28.9 pg (26.0-34.0); MCHC 33.1 g/dL (31.0-37.0); MCV 87.3 fL (80.0-100.0); MEAN PLATELET VOLUME 10.2 fL (7.4-10.4); MONOCYTES 3.2 % (2-11); NEUTROPHILS 85.4 % (40-80); PLATELET COUNT 61 10x3/uL (130-400); RBC 3.39 10x6/uL (4.20-6.10); RDW 16.2 % (11.5-14.5)
[2018-04-15 07:03] LABS: ALBUMIN 2.2 g/dL (3.4-5.0); ALKALINE PHOSPHATASE 219 U/L (46-116); BILIRUBIN - TOTAL 0.97 mg/dL (0.2-1.3); CALC OSMOLALITY 258 mosm/kg (275-300); CALCIUM 7.4 mg/dL (8.5-10.1); CARBON DIOXIDE 25.9 mmol/L (21.0-32.0); CHLORIDE - SERUM 97 mmol/L (98-107); CREATININE - SERUM 0.7 mg/dL (0.6-1.3); GLUCOSE 101 mg/dL (74-106); POTASSIUM - SERUM 3.4 mmol/L (3.5-5.1); PROTEIN - SERUM 5.4 g/dL (6.4-8.2); SODIUM 130 mmol/L (136-145); UREA NITROGEN 7 mg/dL (7-18); eGFR NON AFRICAN AMERICAN > 90 mL/min (90-120)
[2018-04-15 07:07] LABS: ALT (SGPT) 13 U/L (10-68)
[2018-04-15 08:44] LABS: PLATELET ESTIMATE DECREASED
[2018-04-15 09:00] VITALS: BP 150/78
[2018-04-15 14:44] VITALS: BP 123/68
[2018-04-15 17:08] LABS: AEROBE ID Final report (())
[2018-04-15 18:20] VITALS: BP 147/70
[2018-04-15 20:00] VITALS: BP 153/85
[2018-04-16] VITALS: BP 143/93
[2018-04-16 04:08] LABS: BASOPHILS 0 % (0-2); EOSINOPHILS 0.8 % (0-7); HEMATOCRIT 29.4 % (42.0-54.0); HEMOGLOBIN 9.8 g/dL (13.5-17.5); IMMATURE GRANULOCYTES 0.5 % (0-5); LYMPHOCYTES 12.8 % (15-50); MCH 29.2 pg (26.0-34.0); MCHC 33.3 g/dL (31.0-37.0); MCV 87.5 fL (80.0-100.0); MEAN PLATELET VOLUME 9.3 fL (7.4-10.4); MONOCYTES 3.2 % (2-11); NEUTROPHILS 82.7 % (40-80); PLATELET COUNT 61 10x3/uL (130-400); RBC 3.36 10x6/uL (4.20-6.10); RDW 16.1 % (11.5-14.5); WBC 3.7 10x3/uL (4.8-10.8)
[2018-04-16 04:13] LABS: ALBUMIN 2.1 g/dL (3.4-5.0); ALKALINE PHOSPHATASE 242 U/L (46-116); ALT (SGPT) 11 U/L (10-68); BILIRUBIN - TOTAL 0.97 mg/dL (0.2-1.3); CALC OSMOLALITY 260 mosm/kg (275-300); CALCIUM 7.2 mg/dL (8.5-10.1); CARBON DIOXIDE 25.5 mmol/L (21.0-32.0); CHLORIDE - SERUM 97 mmol/L (98-107); CREATININE - SERUM 0.8 mg/dL (0.6-1.3); GLUCOSE 103 mg/dL (74-106); POTASSIUM - SERUM 3.9 mmol/L (3.5-5.1); PROTEIN - SERUM 5.6 g/dL (6.4-8.2); SODIUM 131 mmol/L (136-145); UREA NITROGEN 6 mg/dL (7-18); eGFR NON AFRICAN AMERICAN > 90 mL/min (90-120)
[2018-04-16 09:41] VITALS: BP 156/82
[2018-04-16 14:08] VITALS: BP 158/76
[2018-04-16 18:25] VITALS: BP 156/85
[2018-04-17] VITALS: BP 136/70
[2018-04-17 04:00] VITALS: BP 152/82
[2018-04-17 05:08] LABS: BASOPHILS 0.2 % (0-2); EOSINOPHILS 0.9 % (0-7); HEMATOCRIT 29.5 % (42.0-54.0); IMMATURE GRANULOCYTES 0.4 % (0-5); LYMPHOCYTES 11.7 % (15-50); MCH 29.5 pg (26.0-34.0); MCHC 33.9 g/dL (31.0-37.0); MEAN PLATELET VOLUME 9.5 fL (7.4-10.4); MONOCYTES 3.9 % (2-11); NEUTROPHILS 82.9 % (40-80); PLATELET COUNT 62 10x3/uL (130-400); RBC 3.39 10x6/uL (4.20-6.10); RDW 16.2 % (11.5-14.5); WBC 4.6 10x3/uL (4.8-10.8)
[2018-04-17 05:25] LABS: ALBUMIN 2.2 g/dL (3.4-5.0); ALKALINE PHOSPHATASE 236 U/L (46-116); ALT (SGPT) 12 U/L (10-68); BILIRUBIN - TOTAL 0.99 mg/dL (0.2-1.3); CALC OSMOLALITY 263 mosm/kg (275-300); CALCIUM 7.5 mg/dL (8.5-10.1); CARBON DIOXIDE 25.3 mmol/L (21.0-32.0); CHLORIDE - SERUM 98 mmol/L (98-107); CREATININE - SERUM 0.8 mg/dL (0.6-1.3); GLUCOSE 96 mg/dL (74-106); POTASSIUM - SERUM 3.7 mmol/L (3.5-5.1); PROTEIN - SERUM 5.7 g/dL (6.4-8.2); SODIUM 133 mmol/L (136-145); UREA NITROGEN 6 mg/dL (7-18); eGFR NON AFRICAN AMERICAN > 90 mL/min (90-120)
[2018-04-17 05:29] LABS: PLATELET ESTIMATE DECREASED
[2018-04-17 08:54] VITALS: BP 172/90
--- NOTE | 2018-04-17 09:49 | MORECARE ---
CASE MANAGEMENT DISCHARGE SUMMARY PATIENT: GRISELDA CORTES UNIT: [id number] ADM DATE: 04/05/18 AGE: 68 : 48 SEX: M ROOM/BED: D.2229 AUTHOR: JOSEY,DOC PHYSICIAN: REFERRING PHYSICIAN: NOHEMI REID MD DATE OF SERVICE: 04/17/18 Discharge Plan Patient Name: GRISELDA CORTES Facility: [facility]:[place] : 1950 Planned Disposition: Senior Analytical Chemist Acute Care Facility Anticipated Discharge Date: Discharge Date: Expected LOS: Initial Reviewer: [email or web address] Initial Review Date: 04/11/2018 Generated: 04/17/18 10:49 am Comments DCP- Discharge Planning Updated by [email or web address]: Ambar Brown on 04/17/18 8:[address] I spoke with Oxana at [facility]. Oxana states they will have a bed tomorrow for patient. I spoke with the patient and he would still like to go to [facility] in [place]. Plan for discharge to [facility] tomorrow. CM will continue to follow and assist with discharge planning/needs. DCP- Discharge Planning Updated by [email or web address]: Ambar Brown on 04/14/18 11:[address] Oxana states that they are holding admissions at [facility] until Tuesday. I informed the patient and he is not willing to go to another facility at this time. He would like [facility] on Tuesday. CM will continue to follow and assist with discharge planning/needs. DCP- Discharge Planning Updated by [email or web address]: Ambar Brown on 04/14/18 8:[address] UPDATED CLINICAL SENT TO [facility] IN [place]. DCP- Discharge Planning Updated by [email or web address]: Ambar Brown on 04/14/18 7:[address] Spoke again with patient and explained LTACH. He states he will not go to [place], but agrees to [facility] ([facility]) at [facility]. He asks me to call his son, Mitch at [phone]. I attempted that number with no answer. I called him at [phone] and spoke with his son and he agrees to [facility] [place] at [facility]. I called Oxana Zuluaga at [facility] and left a message that patient is ready to come today. CM will continue to follow and assist with discharge planning/needs. DCP- Discharge Planning Updated by [id number]: Ambar Brown on 04/11/18 8:[address] Patient Name: GRISELDA LAN Admission Status: ER Accout number: [id number] Admission Date: 04-05-2018 : 1950 Admission Diagnosis:FARAZ GANGRENE Attending: NOHEMI REID Current LOS: 6 Anticipated DC Date: Planned Disposition: Senior Analytical Chemist Acute Care Facility Primary Insurance: MEDICARE A & B Discharge Planning Comments: CM met with patient to discuss discharge planning, he is alone in the room. States he lives in a one level home, no steps or ramp to the home. States he is in a wheelchair. States he self propels his wheelchair. States his son, Julia, is active in his care. He does not have any community resources assisting in the home. States he is independent and has a van he drives. States he self propels in his wheelchair. I discussed LTACH and SNF with him and he would like a referral to LTACH in [place]. I called Oxana with [facility] in [place] and clinical faxed. She states they are full now, but expect to have 4 discharges this week. CM will continue to follow and assist with discharge planning/needs. Egg Grader: Ambar Kevin [facility] - Discharge Planning Initial Assessment Updated by [id number]: Ambar Brown on 04/11/18 9:13 am * Is the patient Alert and Oriented? Yes * How many steps to enter\exit or inside your home? 0/0 * PCP Dr. Alphonso Dougherty * Pharmacy [facility] in [place] * Preadmission Environment Home Alone * ADLs Partial Dependent * Partial ADLs (Assistance needed) Ambulation * Equipment Wheelchair * List name and contact numbers for known caregivers / representatives who currently or will assist patient after discharge: Julia - son - [phone] * Verbal permission to speak to the caregivers and representatives has been obtained from the patient. Yes * Community resources currently utilized None * Additional services required to return to the preadmission environment? Yes * Can the patient safely return to the preadmission environment? No * Has this patient been hospitalized within the prior 30 days at any hospital? No Last DP export: 04/14/18 11:02 a Patient Name: GRISELDA CORTES Page [id number] at 0949 All edits/amendments must be made on the electronic document DICTATION DATE: 04/17/18947 STUDENT ACCOUNTS COORDINATOR: LIZZY 04/17/18947 RPT#: [id number] DC DATE: STATUS: ADM IN [facility] [address] [place] [address] END OF REPORT
[2018-04-17 12:47] VITALS: BP 143/63
[2018-04-17 17:33] VITALS: BP 162/78
[2018-04-17 20:00] VITALS: BP 153/87
[2018-04-18] VITALS: BP 155/77
[2018-04-18 04:00] VITALS: BP 153/77
[2018-04-18 07:14] LABS: BASOPHILS 0 % (0-2); EOSINOPHILS 0.6 % (0-7); HEMATOCRIT 28.9 % (42.0-54.0); HEMOGLOBIN 9.9 g/dL (13.5-17.5); IMMATURE GRANULOCYTES 0.6 % (0-5); MCH 29.4 pg (26.0-34.0); MCHC 34.3 g/dL (31.0-37.0); MCV 85.8 fL (80.0-100.0); MEAN PLATELET VOLUME 10.1 fL (7.4-10.4); NEUTROPHILS 84.8 % (40-80); RBC 3.37 10x6/uL (4.20-6.10); RDW 15.9 % (11.5-14.5); WBC 5.3 10x3/uL (4.8-10.8)
[2018-04-18 07:19] LABS: PLATELET COUNT 76 10x3/uL (130-400)
[2018-04-18 08:05] LABS: ALBUMIN 2.3 g/dL (3.4-5.0); ALKALINE PHOSPHATASE 258 U/L (46-116); ALT (SGPT) 11 U/L (10-68); BILIRUBIN - TOTAL 1.11 mg/dL (0.2-1.3); CALC OSMOLALITY 263 mosm/kg (275-300); CALCIUM 7.7 mg/dL (8.5-10.1); CARBON DIOXIDE 25.6 mmol/L (21.0-32.0); CHLORIDE - SERUM 96 mmol/L (98-107); CREATININE - SERUM 0.7 mg/dL (0.6-1.3); GLUCOSE 109 mg/dL (74-106); POTASSIUM - SERUM 3.5 mmol/L (3.5-5.1); PROTEIN - SERUM 6.1 g/dL (6.4-8.2); SODIUM 132 mmol/L (136-145); UREA NITROGEN 7 mg/dL (7-18); eGFR NON AFRICAN AMERICAN > 90 mL/min (90-120)
[2018-04-18 08:45] VITALS: BP 119/89
[2018-04-18] MEDS ORDERED: FLAGYL500 MG PO (09:50)
[2018-04-18] MEDS ORDERED: VANCOMYCIN 1 GM/1 G1 IV (09:50)
[2018-04-18] MEDS ORDERED: ANCEF 1 GM/D5W 51 G1 IV (09:50)
--- NOTE | 2018-04-18 09:53 | MORECARE ---
CASE MANAGEMENT DISCHARGE SUMMARY PATIENT: GRISELDA CORTES UNIT: [id number] ADM DATE: 04/05/18 AGE: 68 : 48 SEX: M ROOM/BED: D.2229 AUTHOR: JOSEY,DOC PHYSICIAN: REFERRING PHYSICIAN: NOHEMI REID MD DATE OF SERVICE: 04/18/18 Discharge Plan Patient Name: GRISELDA CORTES Facility: [facility]:[place] : 1950 Planned Disposition: Product Development Actuary Acute Care Facility Anticipated Discharge Date: Discharge Date: Expected LOS: Initial Reviewer: [email or web address] Initial Review Date: 04/11/2018 Generated: 04/18/18 10:52 am Comments DCP- Discharge Planning Updated by [email or web address]: Ambar Brown on 04/18/18 8:[address] Oxana with [facility] states patient can come today to room 325, Dr. Rodriguez is accepting physician. I informed the patient and called his son, Julia, and they are in agreement to discharge to [facility]. IMM explained and signed. He will go to [facility] via ambulance today. CM will continue to follow and assist with discharge plan/needs. DCP- Discharge Planning Updated by [email or web address]: Ambar Brown on 04/17/18 8:[address] I spoke with Oxana at [facility]. Oxana states they will have a bed tomorrow for patient. I spoke with the patient and he would still like to go to [facility] in [place]. Plan for discharge to [facility] tomorrow. CM will continue to follow and assist with discharge planning/needs. DCP- Discharge Planning Updated by [email or web address]: Ambar Brown on 04/14/18 11:[address] Oxana states that they are holding admissions at [facility] until Tuesday. I informed the patient and he is not willing to go to another facility at this time. He would like [facility] on Tuesday. CM will continue to follow and assist with discharge planning/needs. DCP- Discharge Planning Updated by [email or web address]: Ambar Brown on 04/14/18 8:[address] UPDATED CLINICAL SENT TO [facility]. DCP- Discharge Planning Updated by [email or web address]: Ambar Brown on 04/14/18 7:[address] Spoke again with patient and explained LTACH. He states he will not go to [place], but agrees to [facility]ACH ([facility]) at [facility] in [place]. He asks me to call his son, Mitch at [phone]. I attempted that number with no answer. I called him at [phone] and spoke with his son and he agrees to [facility] in [place] at [facility]. I called Oxana Zuluaga at [facility] and left a message that patient is ready to come today. CM will continue to follow and assist with discharge planning/needs. DCP- Discharge Planning Updated by [email or web address]: Ambar Kevin on 04/11/18 8:[address] Patient Name: GRISELDA LAN Admission Status: ER Accout number: [id number] Admission Date: 04-05-2018 : 1950 Admission Diagnosis:FARAZ GANGRENE Attending: NOHEMI REID Current LOS: 6 Anticipated DC Date: Planned Disposition: Product Development Actuary Acute Care Facility Primary Insurance: MEDICARE A & B Discharge Planning Comments: CM met with patient to discuss discharge planning, he is alone in the room. States he lives in a one level home, no steps or ramp to the home. States he is in a wheelchair. States he self propels his wheelchair. States his son, Julia, is active in his care. He does not have any community resources assisting in the home. States he is independent and has a van he drives. States he self propels in his wheelchair. I discussed LTACH and SNF with him and he would like a referral to LTACH in [place]. I called Oxana with [facility] in [place] and clinical faxed. She states they are full now, but expect to have 4 discharges this week. CM will continue to follow and assist with discharge planning/needs. Airways Operations Specialist: Ambar Brown [facility] - Discharge Planning Initial Assessment Updated by [id number]: Ambar Brown on 04/11/18 9:13 am * Is the patient Alert and Oriented? Yes * How many steps to enter\exit or inside your home? 0/0 * PCP Dr. Alphonso Dougherty * Pharmacy [facility] in [place] * Preadmission Environment Home Alone * ADLs Partial Dependent * Partial ADLs (Assistance needed) Ambulation * Equipment Wheelchair * List name and contact numbers for known caregivers / representatives who currently or will assist patient after discharge: Julia sidhu - [phone] * Verbal permission to speak to the caregivers and representatives has been obtained from the patient. Yes * Community resources currently utilized None * Additional services required to return to the preadmission environment? Yes * Can the patient safely return to the preadmission environment? No * Has this patient been hospitalized within the prior 30 days at any hospital? No Coverage Notice Reviewer: [email or web address] Jordan Brown Notice Issued Date-Time: 04/18/2018 9:35 Notice Type: IM Discharge Notice Notice Delivered To: Patient Relationship to Patient: Self Workforce Advisor Name: Delivery Method: HAND - Hand Delivered Pina Days: Prior Verbal Notification: Recipient Understood Notice: Yes Recipient Signature: Yes Med Rec Note Co-signed by Attending: Coverage Notice Comment: IMM explained, signed, given, copy placed in MR Last DP export: 04/17/18 8:49 a Patient Name: GRISELDA CORTES Page [id number] at 0953 All edits/amendments must be made on the electronic document DICTATION DATE: 04/18/18951 CONTROL ROOM SUPERVISOR: LIZZY 04/18/18951 RPT#: [id number] DC DATE: STATUS: ADM IN [facility] [address] [place] [address] END OF REPORT
[2018-04-18 16:12] LABS: AEROBE ID Final report (()); RESULT 1 Actinomyces species (())
--- NOTE | 2018-04-19 17:00 | MORECARE ---
CASE MANAGEMENT DISCHARGE SUMMARY PATIENT: GRISELDA CORTES UNIT: [id number] ADM DATE: 04/05/18 AGE: 68 : 48 SEX: M ROOM/BED: D.2229 AUTHOR: JOSEYDOC PHYSICIAN: REFERRING PHYSICIAN: NOHEMI REID MD DATE OF SERVICE: 04/19/18 Discharge Plan Patient Name: GRISELDA CORTES Facility: [facility]:[place] : 1950 Planned Disposition: Costumer Assistant Acute Care Facility Anticipated Discharge Date: Discharge Date: 04/18/2018 Expected LOS: 0 Initial Reviewer: [email or web address] Initial Review Date: 04/11/2018 Generated: 04/19/18 6:00 pm Comments DCP- Discharge Planning Updated by [email or web address]: Ambar Brown on 04/18/18 8:[address] Oxana with [facility] states patient can come today to room 325, Dr. Rodriguez is accepting physician. I informed the patient and called his son, Julia, and they are in agreement to discharge to [facility] in [place]. IMM explained and signed. He will go to [facility] via ambulance today. CM will continue to follow and assist with discharge plan/needs. DCP- Discharge Planning Updated by [email or web address]: Ambar Brown on 04/17/18 8:[address] I spoke with Oxana at [facility]. Oxana states they will have a bed tomorrow for patient. I spoke with the patient and he would still like to go to [facility] in [place]. Plan for discharge to [facility] tomorrow. CM will continue to follow and assist with discharge planning/needs. DCP- Discharge Planning Updated by [email or web address]: Ambar Brown on 04/14/18 11:[address] Oxana states that they are holding admissions at [facility] until Tuesday. I informed the patient and he is not willing to go to another facility at this time. He would like [facility] on Tuesday. CM will continue to follow and assist with discharge planning/needs. DCP- Discharge Planning Updated by [id number]: Ambar Brown on 04/14/18 8:[address] UPDATED CLINICAL SENT TO [facility] IN [place]. DCP- Discharge Planning Updated by [id number]: Ambar Brown on 04/14/18 7:[address] Spoke again with patient and explained LTACH. He states he will not go to [place], but agrees to LTACH ([facility]) at [facility] in [place]. He asks me to call his son, Mitch at [phone]. I attempted that number with no answer. I called him at [phone] and spoke with his son and he agrees to [facility] in [place] at [facility]. I called Oxana Zuluaga at [facility] and left a message that patient is ready to come today. CM will continue to follow and assist with discharge planning/needs. DCP- Discharge Planning Updated by [email or web address]: Ambar Kevin on 04/11/18 8:[address] Patient Name: GRISELDA LAN Admission Status: ER Accout number: [id number] Admission Date: 04-05-2018 : 1950 Admission Diagnosis:FARAZ GANGRENE Attending: NOHEMI REID Current LOS: 6 Anticipated DC Date: Planned Disposition: [facility] Acute Care Facility Primary Insurance: MEDICARE A & B Discharge Planning Comments: CM met with patient to discuss discharge planning, he is alone in the room. States he lives in a one level home, no steps or ramp to the home. States he is in a wheelchair. States he self propels his wheelchair. States his son, Julia, is active in his care. He does not have any community resources assisting in the home. States he is independent and has a van he drives. States he self propels in his wheelchair. I discussed LTACH and SNF with him and he would like a referral to LTACH in [place]. I called Oxana with [facility] in [place] and clinical faxed. She states they are full now, but expect to have 4 discharges this week. CM will continue to follow and assist with discharge planning/needs. Hot Saw Helper: Ambar Brown [facility] - Discharge Planning Initial Assessment Updated by [email or web address]: Ambar Brown on 04/11/18 9:13 am * Is the patient Alert and Oriented? Yes * How many steps to enter\exit or inside your home? 0/0 * PCP Dr. Alphonso Dougherty * Pharmacy [facility] in [place] * Preadmission Environment Home Alone * ADLs Partial Dependent * Partial ADLs (Assistance needed) Ambulation * Equipment Wheelchair * List name and contact numbers for known caregivers / representatives who currently or will assist patient after discharge: Julia sidhu - [phone] * Verbal permission to speak to the caregivers and representatives has been obtained from the patient. Yes * Community resources currently utilized None * Additional services required to return to the preadmission environment? Yes * Can the patient safely return to the preadmission environment? No * Has this patient been hospitalized within the prior 30 days at any hospital? No Coverage Notice Reviewer: [id number] Jordan Brown Notice Issued Date-Time: 04/18/2018 9:35 Notice Type: IM Discharge Notice Notice Delivered To: Patient Relationship to Patient: Self Foster Care Therapist Name: Delivery Method: HAND - Hand Delivered Pina Days: Prior Verbal Notification: Recipient Understood Notice: Yes Recipient Signature: Yes Med Rec Note Co-signed by Attending: Coverage Notice Comment: IMM explained, signed, given, copy placed in MR Last DP export: 04/18/18 8:53 a Patient Name: GRISEDLA CORTES Page [id number] at 1700 All edits/amendments must be made on the electronic document DICTATION DATE: 04/19/18 1700 CLINIC SCHEDULER: LIZZY 04/19/18 1700 RPT#: [id number] DC DATE:04/18/18 STATUS: DIS IN [facility] [address] [place] [address] END OF REPORT
== END 2018-04-18 12:31 | disposition short-term general hospital (02) | DRG 853 ==
LOC: D.ER 20:38 → D.MS 21:06 → D.EDHOLD 21:06 → D.ICU 21:06 → D.MS 04-10 15:20
PROVIDERS: Family Medicine; Internal Medicine Pulmonary Disease; Surgery; ADMIT Internal Medicine Nephrology
PROC: 0JBL0ZZ Excision of Right Upper Leg Subcutaneous Tissue and Fascia, Open Approach (ICD-10-PCS; 2018-04-05)
PROC: 0VSC0ZZ Reposition Bilateral Testes, Open Approach (ICD-10-PCS; 2018-04-05)
PROC: 0BH17EZ Insertion of Endotracheal Airway into Trachea, Via Natural or Artificial Opening (ICD-10-PCS; 2018-04-05)
PROC: 05H633Z Insertion of Infusion Device into Left Subclavian Vein, Percutaneous Approach (ICD-10-PCS; 2018-04-05)
PROC: 0TJB8ZZ Inspection of Bladder, Via Natural or Artificial Opening Endoscopic (ICD-10-PCS; 2018-04-05)
PROC: 5A1945Z Respiratory Ventilation, 24-96 Consecutive Hours (ICD-10-PCS; principal; 2018-04-05 21:59)
PROC: 0JBB0ZZ Excision of Perineum Subcutaneous Tissue and Fascia, Open Approach (ICD-10-PCS; 2018-04-05 21:59)
PROC: 0HB6XZZ Excision of Back Skin, External Approach (ICD-10-PCS; 2018-04-07)
PROC: 05HY33Z Insertion of Infusion Device into Upper Vein, Percutaneous Approach (ICD-10-PCS; 2018-04-12)
DX: A41.9 Sepsis, unspecified organism (principal); A48.0 Gas gangrene; J95.821 Acute postprocedural respiratory failure; L89.894 Pressure ulcer of other site, stage 4; G82.20 Paraplegia, unspecified; D62 Acute posthemorrhagic anemia; E87.1 Hypo-osmolality and hyponatremia; I96 Gangrene, not elsewhere classified; L03.90 Cellulitis, unspecified; M86.152 Other acute osteomyelitis, left femur; R65.20 Severe sepsis without septic shock; I95.9 Hypotension, unspecified; E87.6 Hypokalemia